=== PATIENT | female | born 1930 | race Caucasian/White ===

== ENCOUNTER → 2017-02-13 | Outpatient (CLI) | payer MEDICARE, OTHER ==
[2016-12-13 14:15] VITALS: BP 168/95
[~2017-02-13] MED LIST: ASPI81TA9 PO; CLON0.5T3 PO; METO100T5 PO; OMEP20CA5 PO; TELM80TA PO; TRAM50TA PO
[2017-02-13 10:50] LABS: COLOR,URINE YELLOW
[2017-02-13 10:51] LABS: BACTERIA,URINE 0 /HPF (0-FEW); BILIRUBIN,URINE NEG (NEG); CLARITY,URINE HAZY; GLUCOSE,URINE NEG (NEG); NITRITE,URINE NEG (NEG); RBC,URINE RARE /HPF (0-2); SQUAMOUS EPITHELIAL CELL,UR OCC /LPF; UROBILINOGEN,URINE 0.2 mg/dL (0.2 mg/dL)
== END | disposition home or self-care (01) ==
LOC: SPEC 09:48
PROVIDERS: ATTEND Family Medicine
DX: R41.0 Disorientation, unspecified (principal)
CPT/HCPCS: 81001; 87086

== ENCOUNTER → 2017-03-10 | Outpatient (CLI) | payer MEDICARE, OTHER ==
[2016-12-13 14:15] VITALS: BP 168/95
[2017-03-10 08:19] LABS: CALCIUM 9.1 mg/dL (8.5-10.1); CREATININE 1.9 mg/dL (0.6-1.0); POTASSIUM 4.1 mmol/L (3.5-5.1)
[2017-03-10 08:22] LABS: GFR 25.1
== END | disposition home or self-care (01) ==
LOC: SPEC 07:53
PROVIDERS: ATTEND Family Medicine
DX: I10 Essential (primary) hypertension (principal)
CPT/HCPCS: 36415; 80048

== ENCOUNTER → 2017-05-13 | Outpatient (CLI) | payer MEDICARE, OTHER ==
[2016-12-13 14:15] VITALS: BP 168/95
[~2017-05-13] MED LIST changes: +ASPI-612 PO; -ASPI81TA9 PO
[2017-05-13 10:53] LABS: BASO % 1 % (0-3); EOS # 0.5 x10^3/uL (0.0-0.7); EOS % 6 % (0-3); HEMATOCRIT 35.4 % (36.0-47.0); HEMOGLOBIN 11.7 g/dL (12.0-15.5); LYMPH # 1.7 x10^3/uL (1.0-4.8); LYMPH % 21 % (24-48); MEAN CORPUSCULAR HEMOGLOBIN 31 pg (25-35); MEAN CORPUSCULAR HGB CONC 33 g/dL (31-37); MEAN CORPUSCULAR VOLUME 94 fL (79-100); MONO # 0.6 x10^3/uL (0.0-1.1); MONO % 8 % (0-9); NEUT # 5.2 x10^3uL (1.8-7.7); NEUT % 64 % (31-73); PLATELET COUNT 344 x10^3/uL (140-400); RED BLOOD COUNT 3.76 x10^6/uL (3.50-5.40); WHITE BLOOD COUNT 8.2 x10^3/uL (4.0-11.0)
[2017-05-13 10:55] LABS: BASO # 0.1 x10^3/uL (0.0-0.2)
[2017-05-13 10:58] LABS: ALBUMIN 3.8 g/dL (3.4-5.0); CALCIUM 9.2 mg/dL (8.5-10.1); CREATININE 1.9 mg/dL (0.6-1.0); GFR 25.1; POTASSIUM 4.3 mmol/L (3.5-5.1); TOTAL BILIRUBIN 0.4 mg/dL (0.2-1.0); TOTAL PROTEIN 7.5 g/dL (6.4-8.2)
== END | disposition home or self-care (01) ==
LOC: SPEC 10:36
PROVIDERS: ATTEND Family Medicine
DX: E03.9 Hypothyroidism, unspecified (principal); E87.1 Hypo-osmolality and hyponatremia
CPT/HCPCS: 36415; 80053; 84443; 85027

== ENCOUNTER → 2017-06-05 | Outpatient (CLI) | payer MEDICARE, OTHER ==
[2016-12-13 14:15] VITALS: BP 168/95
[2017-06-05 12:17] LABS: CREATININE 1.7 mg/dL (0.6-1.0); GFR 28.6; POTASSIUM 3.8 mmol/L (3.5-5.1)
== END | disposition home or self-care (01) ==
LOC: SPEC 12:01
PROVIDERS: ATTEND Internal Medicine Cardiovascular Disease
DX: N18.4 Chronic kidney disease, stage 4 (severe) (principal)
CPT/HCPCS: 36415; 80048

== ENCOUNTER → 2017-07-13 | Outpatient (CLI) | payer MEDICARE, OTHER ==
[2016-12-13 14:15] VITALS: BP 168/95
[2017-07-13 08:39] LABS: CALCIUM 8.9 mg/dL (8.5-10.1); CREATININE 1.8 mg/dL (0.6-1.0); GFR 26.7; POTASSIUM 4.3 mmol/L (3.5-5.1)
== END | disposition home or self-care (01) ==
LOC: SPEC 08:03
PROVIDERS: ATTEND Family Medicine
DX: E03.9 Hypothyroidism, unspecified (principal)
CPT/HCPCS: 36415; 80048

== ENCOUNTER → 2017-09-07 | Outpatient (CLI) | payer MEDICARE, OTHER ==
[2016-12-13 14:15] VITALS: BP 168/95
[2017-09-08 04:09] LABS: HEMOGLOBIN A1C 5.1 % (4.8-5.6)
== END | disposition home or self-care (01) ==
LOC: SPEC 07:38
PROVIDERS: ATTEND Family Medicine
DX: I10 Essential (primary) hypertension (principal); E03.9 Hypothyroidism, unspecified; Z79.899 Other long term (current) drug therapy
CPT/HCPCS: 36415; 80061; 83036

== ENCOUNTER → 2017-09-12 | Outpatient (CLI) | payer MEDICARE, OTHER ==
[2016-12-13 14:15] VITALS: BP 168/95
[2017-09-12 12:06] LABS: CALCIUM 9.2 mg/dL (8.5-10.1); CREATININE 1.6 mg/dL (0.6-1.0); GFR 30.6
== END | disposition home or self-care (01) ==
LOC: SPEC 11:50
PROVIDERS: ATTEND Family Medicine
DX: I10 Essential (primary) hypertension (principal)
CPT/HCPCS: 36415; 80048

== ENCOUNTER → 2017-10-18 | Outpatient (CLI) | payer MEDICARE, OTHER ==
[2016-12-13 14:15] VITALS: BP 168/95
[2017-10-18 11:36] LABS: CREATININE 1.7 mg/dL (0.6-1.0); GFR 28.6; POTASSIUM 3.8 mmol/L (3.5-5.1)
== END | disposition home or self-care (01) ==
LOC: SPEC 11:08
PROVIDERS: ATTEND Family Medicine
DX: Z00.01 Encounter for general adult medical examination with abnormal findings (principal); I12.9 Hypertensive chronic kidney disease with stage 1 through stage 4 chronic kidney disease, or unspecified chronic kidney disease; N18.4 Chronic kidney disease, stage 4 (severe)
CPT/HCPCS: 36415; 80048

== ENCOUNTER → 2017-11-12 | Outpatient (CLI) | payer MEDICARE, OTHER ==
[2016-12-13 14:15] VITALS: BP 168/95
[2017-11-12 10:34] LABS: BASO # 0.1 x10^3/uL (0.0-0.2); BASO % 1 % (0-3); EOS # 0.4 x10^3/uL (0.0-0.7); EOS % 6 % (0-3); HEMATOCRIT 38.8 % (36.0-47.0); HEMOGLOBIN 12.9 g/dL (12.0-15.5); LYMPH # 1.9 x10^3/uL (1.0-4.8); LYMPH % 27 % (24-48); MEAN CORPUSCULAR HEMOGLOBIN 30 pg (25-35); MEAN CORPUSCULAR HGB CONC 33 g/dL (31-37); MEAN CORPUSCULAR VOLUME 92 fL (79-100); MONO # 0.6 x10^3/uL (0.0-1.1); MONO % 9 % (0-9); NEUT % 58 % (31-73); PLATELET COUNT 303 x10^3/uL (140-400); RED BLOOD COUNT 4.24 x10^6/uL (3.50-5.40); RED CELL DISTRIBUTION WIDTH 13.7 % (11.5-14.5); WHITE BLOOD COUNT 6.9 x10^3/uL (4.0-11.0)
[2017-11-12 10:41] LABS: ALBUMIN 3.6 g/dL (3.4-5.0); ALBUMIN/GLOBULIN RATIO 0.8 (1.0-1.7); CALCIUM 9.4 mg/dL (8.5-10.1); CREATININE 1.9 mg/dL (0.6-1.0); GFR 25.1; POTASSIUM 4.2 mmol/L (3.5-5.1); TOTAL BILIRUBIN 0.4 mg/dL (0.2-1.0)
== END | disposition home or self-care (01) ==
LOC: SPEC 09:56
PROVIDERS: ATTEND Family Medicine
DX: I10 Essential (primary) hypertension (principal); E78.1 Pure hyperglyceridemia
CPT/HCPCS: 36415; 80053; 84443; 85025

== ENCOUNTER → 2017-12-03 | Outpatient (CLI) | payer MEDICARE, OTHER ==
[2016-12-13 14:15] VITALS: BP 168/95
[2017-12-03 10:36] LABS: ALBUMIN 3.4 g/dL (3.4-5.0); ALBUMIN/GLOBULIN RATIO 0.8 (1.0-1.7); CREATININE 1.5 mg/dL (0.6-1.0); POTASSIUM 3.9 mmol/L (3.5-5.1); TOTAL BILIRUBIN 0.5 mg/dL (0.2-1.0); TOTAL PROTEIN 7.6 g/dL (6.4-8.2)
== END | disposition home or self-care (01) ==
LOC: SPEC 09:54
PROVIDERS: ATTEND Family Medicine
DX: I13.0 Hypertensive heart and chronic kidney disease with heart failure and stage 1 through stage 4 chronic kidney disease, or unspecified chronic kidney disease (principal); I50.9 Heart failure, unspecified; N18.4 Chronic kidney disease, stage 4 (severe); I34.1 Nonrheumatic mitral (valve) prolapse; G47.00 Insomnia, unspecified; R61 Generalized hyperhidrosis; K21.9 Gastro-esophageal reflux disease without esophagitis; E78.1 Pure hyperglyceridemia
CPT/HCPCS: 36415; 80053; 82977

== ENCOUNTER → 2018-01-13 | Outpatient (CLI) | payer MEDICARE, OTHER ==
[2016-12-13 14:15] VITALS: BP 168/95
[2018-01-13 08:17] LABS: ALBUMIN 3.4 g/dL (3.4-5.0); CALCIUM 9.3 mg/dL (8.5-10.1); CREATININE 1.6 mg/dL (0.6-1.0); GFR 30.6; POTASSIUM 4.2 mmol/L (3.5-5.1); TOTAL BILIRUBIN 0.4 mg/dL (0.2-1.0); TOTAL PROTEIN 6.9 g/dL (6.4-8.2)
== END | disposition home or self-care (01) ==
LOC: SPEC 07:46
PROVIDERS: ATTEND Family Medicine
DX: E03.9 Hypothyroidism, unspecified (principal); I10 Essential (primary) hypertension
CPT/HCPCS: 36415; 80053

== ENCOUNTER → 2018-02-10 | Outpatient (CLI) | payer MEDICARE, OTHER ==
[2016-12-13 14:15] VITALS: BP 168/95
[2018-02-10 12:39] LABS: ALBUMIN 3.7 g/dL (3.4-5.0); CALCIUM 9.1 mg/dL (8.5-10.1); CREATININE 1.8 mg/dL (0.6-1.0); GFR 26.7; TOTAL BILIRUBIN 0.3 mg/dL (0.2-1.0); TOTAL PROTEIN 7.5 g/dL (6.4-8.2)
== END | disposition home or self-care (01) ==
LOC: SPEC 12:12
PROVIDERS: ATTEND Family Medicine
DX: I13.0 Hypertensive heart and chronic kidney disease with heart failure and stage 1 through stage 4 chronic kidney disease, or unspecified chronic kidney disease (principal); I50.9 Heart failure, unspecified; N18.4 Chronic kidney disease, stage 4 (severe); E78.1 Pure hyperglyceridemia
CPT/HCPCS: 36415; 80053

== ENCOUNTER → 2018-07-15 | Outpatient (CLI) | payer MEDICARE, OTHER ==
[2016-12-13 14:15] VITALS: BP 168/95
[~2018-07-15] MED LIST changes: +CLON0.5T11 PO; -CLON0.5T3 PO
--- NOTE | 2018-07-15 16:24 | RAD ---
CT ABDOMEN PELVIS WO CONTRAST Indication: LOWER LEFT SIDE ABDOMINAL PAIN Exposure: One or more of the following individualized dose reduction techniques were utilized for this examination: 1. Automated exposure control 2. Adjustment of the mA and/or kV according to patient size 3. Use of iterative reconstruction technique. Comparison: None are available. Contrast: No intravenous contrast given. No oral contrast per request. Evaluation of solid viscera, bowel and vasculature is compromised by the noncontrast technique. Lower thorax: Heart size is enlarged. Coronary artery calcifications. Mild atelectasis or fibrosis in lung bases. Liver: Unremarkable Spleen: Unremarkable Pancreas: Unremarkable Adrenals:No evidence of mass. Kidneys: Atrophic. No apparent mass. Minimal hyperdense lesion at the lower pole, image 41, measures 3 mm Urinary tracts:No urolithiasis or hydronephrosis. Gallbladder: Minimal dependent density, likely small gallstones. Aorta: Densely calcified and tortuous. Lymph nodes: No significant enlargement GI tract: Large hiatal hernia is partially seen. No bowel obstruction. Diverticulosis without evidence of an acute colitis. Appendix is not clearly visualized. Reproductive organs: No evidence of mass. There is an implanted structure posterior to the bladder. Urinary bladder: Unremarkable. Peritoneum: No evidence of pneumoperitoneum. No free fluid. Abdominal wall: Unremarkable Spine: Severe degenerative spondylosis. Mild compression fracture of L1 likely chronic. Vertebroplasty cement at T12. Bones: No destructive process identified. IMPRESSION: 1. Large hiatal hernia. 2. Tiny hyperdensity at the lower pole of left kidney may represent a hemorrhagic cyst. Nonemergent renal ultrasound could further evaluate if indicated. 3. Colonic diverticulosis without evidence of acute colitis. 4. Small dependent density in the gallbladder, likely small gallstone. Electronically signed by: Ramiro Patel MD (07/15/2018 4:20 PM) [id number]
== END | disposition home or self-care (01) ==
LOC: CT 15:49
PROVIDERS: ATTEND Family Medicine
DX: K44.9 Diaphragmatic hernia without obstruction or gangrene (principal); K57.30 Diverticulosis of large intestine without perforation or abscess without bleeding; M47.9 Spondylosis, unspecified; M48.56XA Collapsed vertebra, not elsewhere classified, lumbar region, initial encounter for fracture; I13.0 Hypertensive heart and chronic kidney disease with heart failure and stage 1 through stage 4 chronic kidney disease, or unspecified chronic kidney disease; I50.9 Heart failure, unspecified; N18.4 Chronic kidney disease, stage 4 (severe); E03.9 Hypothyroidism, unspecified; K21.9 Gastro-esophageal reflux disease without esophagitis
CPT/HCPCS: 74176

== ENCOUNTER → 2020-05-29 | Outpatient (CLI) | payer MEDICARE, OTHER ==
[2016-12-13 14:15] VITALS: BP 168/95
[~2020-05-29] MED LIST changes: -CLON0.5T11 PO; +CLON0.5T4 PO
--- NOTE | 2020-05-29 15:43 | RAD ---
3 views of the left foot without comparison for fall. FINDINGS: Bones are diffusely osteopenic. The there is a fracture of the fifth metatarsal in its distal diaphysis, with mild displacement. No other fracture or acute osseous abnormality seen. Erosive changes are seen about the first metatarsophalangeal joint evocative of gout. IMPRESSION: 1. Fracture the fifth metatarsal with mild displacement. 2. Diffuse osteopenia. 3. Monarticular arthritis of the first metatarsal phalangeal joint evocative of gout. Electronically signed by: Js Mclaughlin MD (05/29/2020 3:40 PM) [id number]
== END | disposition home or self-care (01) ==
LOC: DXRAD 10:38
PROVIDERS: ATTEND Family Medicine
DX: S92.352A Displaced fracture of fifth metatarsal bone, left foot, initial encounter for closed fracture (principal); M85.872 Other specified disorders of bone density and structure, left ankle and foot; M19.072 Primary osteoarthritis, left ankle and foot; M10.9 Gout, unspecified; X58.XXXA Exposure to other specified factors, initial encounter; Y93.89 Activity, other specified; Y92.89 Other specified places as the place of occurrence of the external cause; Y99.8 Other external cause status
CPT/HCPCS: 73630

== ENCOUNTER → 2020-06-05 | Outpatient (CLI) | payer MEDICARE, OTHER ==
[2016-12-13 14:15] VITALS: BP 168/95
[~2020-06-05] MED LIST changes: -ASPI-612 PO; +ASPI-889 PO
--- NOTE | 2020-06-05 10:24 | RAD ---
Examination: FOOT LEFT 3V History: Reason: LEFT FOOT PAIN / Spl. Instructions: / History: Comparison/Correlation: 05/29/2020 left foot X ray exam Findings: 3 views of the left foot were obtained. Marked osteopenia is present. Oblique displaced fracture of the fifth metatarsal shaft distally is present. First metatarsophalangeal joint degenerative remodeling and narrowing is present along with spurring. Mild soft tissue swelling about the medial aspect of the first metatarsophalangeal joint suggested. No acute fracture or bone destruction. Small calcaneal spur. Arteriovascular calcifications level. Impression: No significant change in the first metatarsal displaced fracture. No appreciable callus formation in the interval. First metatarsophalangeal joint degenerative change again seen. Electronically signed by: Kilo Kruger MD (06/05/2020 10:21 AM) [id number]
== END ==
LOC: DXRAD 09:03
PROVIDERS: ATTEND Family Medicine
DX: S92.352A Displaced fracture of fifth metatarsal bone, left foot, initial encounter for closed fracture (principal); M77.32 Calcaneal spur, left foot; M85.872 Other specified disorders of bone density and structure, left ankle and foot; M79.89 Other specified soft tissue disorders; X58.XXXA Exposure to other specified factors, initial encounter; Y93.89 Activity, other specified; Y92.89 Other specified places as the place of occurrence of the external cause; Y99.8 Other external cause status
CPT/HCPCS: 73630

== ENCOUNTER → 2020-06-19 | Outpatient (CLI) | payer MEDICARE, OTHER ==
[2016-12-13 14:15] VITALS: BP 168/95
--- NOTE | 2020-06-19 10:39 | RAD ---
FOOT LEFT 3V 06/19/2020 12:00 AM INDICATION: Left foot pain COMPARISON: None available. TECHNIQUE: 3 views of the left foot are provided. FINDINGS/ IMPRESSION: 1. Acute fracture, obliquely oriented through the midshaft of the fifth metatarsal with one shaft width displacement. No definite intra-articular extension. 2. Regional soft tissue swelling is present. 3. Osteopenia. 4. Vascular calcifications. Electronically signed by: Nathaly Loaiza MD (06/19/2020 10:37 AM) [id number]
== END | disposition home or self-care (01) ==
LOC: DXRAD 08:55
PROVIDERS: ATTEND Family Medicine
DX: S92.352A Displaced fracture of fifth metatarsal bone, left foot, initial encounter for closed fracture (principal); M79.89 Other specified soft tissue disorders; M85.872 Other specified disorders of bone density and structure, left ankle and foot; M25.872 Other specified joint disorders, left ankle and foot; X58.XXXA Exposure to other specified factors, initial encounter; Y93.89 Activity, other specified; Y92.89 Other specified places as the place of occurrence of the external cause; Y99.8 Other external cause status
CPT/HCPCS: 73630

== ENCOUNTER → 2020-07-04 | Outpatient (CLI) | payer MEDICARE, OTHER ==
--- NOTE | 2020-07-01 14:33 | NUR ---
NURSING NOTE BLADDER SCAN PT WHEELED TO ROOM 105 FOR OUTPATIENT BLADDER SCAN. PT STATES SHE JUST VOID BEFORE ARRIVAL. PT HAS 58ML OF URINE IN BLADDER PER BLADDER SCAN. PT UNABLE TO VOID FOR POST URINATION SCAN D/T JUST VOIDING BEFORE ARRIVAL. DORI IBANEZ.
[2020-07-01 14:42] VITALS: BP 165/84
--- NOTE | 2020-07-04 13:44 | NUR ---
NURSING NOTE BLADDER SCAN PT WHEELED TO ROOM 128 FOR OUTPATIENT BLADDER SCAN. PT HAS APPROX 421ML OF URINE IN BLADDER PER BLADDER SCAN. PT VOID APPROX 380ML. PT HAS APPROX 20ML OF URINE IN BLADDER PER BLADDER SCAN. NO COMPLICATIONS. DORI IBANEZ.
[2020-07-04 13:47] VITALS: BP 155/80
== END | disposition home or self-care (01) ==
LOC: OPINF 07-01 14:09
PROVIDERS: ATTEND Family Medicine
DX: R35.0 Frequency of micturition (principal)
CPT/HCPCS: 51798

== ENCOUNTER → 2020-07-30 | Outpatient (CLI) | payer MEDICARE, OTHER ==
[2020-07-04 13:47] VITALS: BP 155/80
--- NOTE | 2020-07-30 10:55 | RAD ---
Abdominal ultrasound without comparison for abnormal LFTs. TECHNIQUE AND FINDINGS: Real-time grayscale and color Doppler evaluation of the abdominal organs is performed. The majority of the pancreas is obscured by overlying bowel gas. The IVC is patent. Mid and distal aorta is nonaneurysmal. Proximal aorta is not well seen.The liver measures 14.5 cm, and visualized portions are grossly unremarkable. Much of the liver is poorly visualized due to attenuation from body habitus. No discrete masses are identified. No intra or extrahepatic biliary ductal dilatation. Common bile duct measures 2 mm in thickness. The right kidney is completely obscured, likely due to attenuation from habitus. The left kidney measures 9.0 x 4.0 x 4.7 cm and is free of any hydronephrosis or focal parenchymal abnormalities. There is increased echogenicity of the cortex and decreased cortical medullary differentiation which may reflect chronic medical renal disease. The spleen is not well depicted once again likely due to attenuation of the ultrasound beam by habitus and overlying bowel gas. The gallbladder is partially fluid distended and grossly unremarkable with no definite shadowing stones or sludge, though the entirety of the fundus is not well seen. No gallbladder wall thickening or pericholecystic fluid. No sonographic Bundy sign. IMPRESSION: 1. Limited exam for midline structures and solid organ detail, with no definite abnormalities of the liver, gallbladder, or biliary tree. 2. Nonvisualization of the right kidney and abnormal appearance of the left kidney suggestive chronic medical renal disease. Electronically signed by: Js Mclaughlin MD (07/30/2020 10:52 AM) [id number]
== END | disposition home or self-care (01) ==
LOC: US 09:47
PROVIDERS: ATTEND Family Medicine
DX: R94.5 Abnormal results of liver function studies (principal)
CPT/HCPCS: 76700

== ENCOUNTER 2021-01-16 11:44 | Observation (INO) | payer MEDICARE, OTHER ==
[~2021-01-16] VITALS: Ht 162.6 cm; Wt 71.5 kg
--- NOTE | 2021-01-16 12:03 | PHYS DOC ---
Past History Past Medical History: Anxiety, Cancer, GERD, Hypertension, Hypothyroid, Other Additional Past Medical Histor: hypertension critical aortic stenosis chronic renal insufficiency,pesari Past Surgical History: No Surgical History, Appendectomy Smoking: Non-smoker Alcohol Use: None Drug Use: None General Adult HPI: HPI: Patient is a 89-year-old female coming in after a fall about 5:00 this morning (about 7 hours prior to arrival). Patient that she slipped in the shower and is complaining of right rib pain. Patient denies any loss of consciousness or head injury. Denies any neck pain. States she otherwise been well and is not on blood thinners. Patient is baseline on nasal cannula at 2 L. Denies anticoagulant us. Review of Systems: Review of Systems: All other systems within normal limits except for as noted in the HPI Allergies: Allergies: Allergies Coded Allergies Type Severity Reaction Last Updated Verified Iodinated Contrast Media - IV Dye Allergy Intermediate Itching 09/14/15 Yes Physical Exam: PE: Constitutional: Well developed, well nourished, no acute distress, non-toxic appearance. [] HENT: Normocephalic, atraumatic, bilateral external ears normal, nose normal. [] Eyes: PERRLA, conjunctiva normal, no discharge. [] Neck: No rigidity, supple, no stridor, no C-spine tenderness. [] Cardiovascular: Regular rate and rhythm, brisk cap refill [] Lungs & Thorax: Non labored symmetric respirations, no tachypnea or respiratory distress [] Abdomen: Soft, nondistended, no tenderness, no pelvic tenderness.. Skin: Warm, dry, no erythema, no rash. Ecchymosis to right thoracic back [] Back: Unremarkable, no step-offs or deformities, no point spinal tenderness. Extremities: No deformities, range of motion grossly intact, no lower extremity edema [] Neurologic: Alert and oriented X 3, no focal deficits noted. [] Psychologic: Affect normal, judgement normal, mood normal. [] EKG: EKG: [] Radiology/Procedures: Radiology/Procedures: CT HEAD AND CERVICAL SPINE WITHOUT CONTRAST History: Reason: fall / Spl. Instructions: / History: Comparison: CT head without contrast, December 29, 2016. Procedure: Axial images are obtained of the head from the skull base through the vertex without IV contrast. Noncontrast helical CT of the cervical spine was performed. Axial, sagittal, and coronal reconstructions were obtained. 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 The ventricles and sulci are prominent, consistent with age-related cerebral atrophy. There is periventricular white matter hypoattenuation. This is a nonspecific finding but is commonly due to chronic small vessel ischemic disease in a patient of this age. No mass-effect, midline shift, hemorrhage or obvious acute infarction is identified. Basilar cisterns are patent. Bone windows demonstrate no significant calvarial abnormality. There is mucosal thickening of the bilateral ethmoid sinuses. Mastoid air cells are well aerated. There is no evidence of acute fracture or acute malalignment of the cervical spine. The facet joints are severely hypertrophic. There is minimal grade 1 anterolisthesis of C4 on C5. The alignment is otherwise maintained. There is mild disc space narrowing at C5/C6. There is mild old compression deformity at the superior endplate of C7. There is severe bilateral carotid artery calcifications. The visualized lung apices are clear. IMPRESSION: 1. No acute intracranial abnormality. 2. No acute fracture of the cervical spine. CT CHEST_ABDOMEN_ AND PELVIS WITHOUT CONTRAST Clinical Indication: Reason: fall, right side back/shoulder pain Comparison: CT abdomen and pelvis without contrast July 15, 2018. Technique: Helical CT imaging of the chest, abdomen and pelvis is performed without IV or oral contrast. Findings: Evaluation of vascular structures, solid organs and bowel is limited without oral and IV contrast, decreasing sensitivity for detection of pathology. There is no acute mediastinal hematoma. Atherosclerotic thoracic aorta. Patient is post DELICIA. Moderate mitral annular calcification. Coronary artery disease. Moderate cardiomegaly. No pericardial effusion. Moderate-sized hiatal hernia. Small left and trace right pleural effusions. No pneumothorax. There is moderate atelectasis in the bilateral lower lobes. No acute traumatic solid organ injuries identified in the upper abdomen. There is left adrenal gland hyperplasia. Severe atherosclerotic calcification of the abdominal aorta and its branches. There is no aneurysm. No bowel obstruction. Severe distal colon diverticulosis. There is no intraperitoneal free air or free fluid. No injury of the urinary bladder is seen. Vaginal pessary is noted. Degenerative spondylosis of the thoracolumbar spine. There is old compression fracture treated with vertebroplasty of T12. There is old compression fracture at the superior endplate of L1. There is grade 1 anterolisthesis of L3 on L4 and L4 on L5. There is minimal left convexity lumbar scoliosis. There is probable old fracture of the proximal right humerus. There are acute traumatic fractures of the right posterior ninth and 10th ribs. The fractures are minimally displaced. IMPRESSION: 1. There are acute traumatic fractures of the right posterior ninth and 10th ribs. 2. Small left and trace right pleural effusions. 3. Moderate-sized hiatal hernia. 4. Severe distal colon diverticulosis. [] Heart Score: Risk Factors: Risk Factors: DM, Current or recent (<one month) smoker, HTN, HLP, family history of CAD, obesity. Risk Scores: Score 0 - 3: 2.5% MACE over next 6 weeks - Discharge Home Score 4 - 6: 20.3% MACE over next 6 weeks - Admit for Clinical Observation Score 7 - 10: 72.7% MACE over next 6 weeks - Early Invasive Strategies Course & Med Decision Making: Course & Med Decision Making Admit for oxygen monitoring and pain management [] Dragon Disclaimer: Dragon Disclaimer: This electronic medical record was generated, in whole or in part, using a voice recognition dictation system. Departure Departure: Impression: Primary Impression: Rib fracture Additional Impression: Fall Disposition: ADMITTED INPT THIS HOSP Admitting Physician: Haim Ramos Condition: STABLE Referrals: TUSHAR MARIA MD (PCP) PRASAD FRANCIS MD Jan 16, 2021 12:03
[2021-01-16] MEDS ORDERED: LIDOCAINE (700MG/PATCH) PATCH. TD ONE (12:11)
[2021-01-16 12:50] LABS: BASO # 0.1 x10^3/uL (0.0-0.2); BASO % 1 % (0-3); EOS # 0.2 x10^3/uL (0.0-0.7); EOS % 2 % (0-3); HEMOGLOBIN 11.9 g/dL (12.0-15.5); LYMPH # 0.9 x10^3/uL (1.0-4.8); LYMPH % 10 % (24-48); MEAN CORPUSCULAR HEMOGLOBIN 30 pg (25-35); MEAN CORPUSCULAR HGB CONC 32 g/dL (31-37); MEAN CORPUSCULAR VOLUME 94 fL (79-100); MONO # 0.6 x10^3/uL (0.0-1.1); MONO % 7 % (0-9); NEUT # 7.5 x10^3uL (1.8-7.7); NEUT % 81 % (31-73); PLATELET COUNT 264 x10^3/uL (140-400); RED BLOOD COUNT 3.93 x10^6/uL (3.50-5.40); WHITE BLOOD COUNT 9.3 x10^3/uL (4.0-11.0)
[2021-01-16 13:00] LABS: CALCIUM 9.1 mg/dL (8.5-10.1); CREATININE 1.8 mg/dL (0.6-1.0); GFR 26.6; POTASSIUM 4.5 mmol/L (3.5-5.1)
[2021-01-16 13:12] LABS: ALBUMIN 3.7 g/dL (3.4-5.0); ALBUMIN/GLOBULIN RATIO 0.8 (1.0-1.7); TOTAL BILIRUBIN 0.6 mg/dL (0.2-1.0); TOTAL PROTEIN 8.1 g/dL (6.4-8.2)
--- NOTE | 2021-01-16 13:18 | RAD ---
PQRS Compliance Statement: One or more of the following individualized dose reduction techniques were utilized for this examinat ion: 1. Automated exposure control 2. Adjustment of the mA and/or kV according to patient size 3. Use of iterative reconstruction technique CT HEAD AND CERVICAL SPINE WITHOUT CONTRAST History: Reason: fall / Spl. Instructions: / History: Comparison: CT head without contrast, December 29, 2016. Procedure: Axial images are obtained of the head from the skull base through the vertex without IV co ntrast. Noncontrast helical CT of the cervical spine was performed. Axial, sagittal, and coronal rec onstructions were obtained. 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 The ventricles and sulci are prominent, consistent with age- related cerebral atrophy. There is periventricular white matter hypoattenuation. This is a nonspeci fic finding but is commonly due to chronic small vessel ischemic disease in a patient of this age. No mass-effect, midline shift, hemorrhage or obvious acute infarction is identified. Basilar cistern s are patent. Bone windows demonstrate no significant calvarial abnormality. There is mucosal thickening of the bilateral ethmoid sinuses. Mastoid air cells are well aerated. There is no evidence of acute fracture or acute malalignment of the cervical spine. The facet joints are severely hypertrophic. There is minimal grade 1 anterolisthesis of C4 on C5. The alignment is otherwise maintained. There is mild disc space narrowing at C5/C6. There is mild old co mpression deformity at the superior endplate of C7. There is severe bilateral carotid artery calcifications. The visualized lung apices are clear. IMPRESSION: 1. No acute intracranial abnormality. 2. No acute fracture of the cervical spine. Electronically signed by: Sacha Rocha MD (01/16/2021 1:16 PM) [facility]
--- NOTE | 2021-01-16 13:50 | RAD ---
PQRS Compliance Statement: One or more of the following individualized dose reduction techniques were utilized for this examinat ion: 1. Automated exposure control 2. Adjustment of the mA and/or kV according to patient size 3. Use of iterative reconstruction technique CT CHEST_ABDOMEN_ AND PELVIS WITHOUT CONTRAST Clinical Indication: Reason: fall, right side back/shoulder pain Comparison: CT abdomen and pelvis without contrast July 15, 2018. Technique: Helical CT imaging of the chest, abdomen and pelvis is performed without IV or oral contra st. Findings: Evaluation of vascular structures, solid organs and bowel is limited without oral and IV contrast, de creasing sensitivity for detection of pathology. There is no acute mediastinal hematoma. Atherosclerotic thoracic aorta. Patient is post DELICIA. Moderat e mitral annular calcification. Coronary artery disease. Moderate cardiomegaly. No pericardial effusi on. Moderate-sized hiatal hernia. Small left and trace right pleural effusions. No pneumothorax. There is moderate atelectasis in the b ilateral lower lobes. No acute traumatic solid organ injuries identified in the upper abdomen. There is left adrenal gland hyperplasia. Severe atherosclerotic calcification of the abdominal aorta and its branches. There is n o aneurysm. No bowel obstruction. Severe distal colon diverticulosis. There is no intraperitoneal free air or lena e fluid. No injury of the urinary bladder is seen. Vaginal pessary is noted. Degenerative spondylosis of the thoracolumbar spine. There is old compression fracture treated with v ertebroplasty of T12. There is old compression fracture at the superior endplate of L1. There is grad e 1 anterolisthesis of L3 on L4 and L4 on L5. There is minimal left convexity lumbar scoliosis. There is probable old fracture of the proximal right humerus. There are acute traumatic fractures of the r ight posterior ninth and 10th ribs. The fractures are minimally displaced. IMPRESSION: 1. There are acute traumatic fractures of the right posterior ninth and 10th ribs. 2. Small left and trace right pleural effusions. 3. Moderate-sized hiatal hernia. 4. Severe distal colon diverticulosis. Electronically signed by: Sacha Rocha MD (01/16/2021 1:48 PM) [facility]
[2021-01-16 14:13] LABS: CLARITY,URINE HAZY; COLOR,URINE STRAW
[2021-01-16 14:14] LABS: BACTERIA,URINE MOD /HPF (0-FEW); BILIRUBIN,URINE NEG (NEG); GLUCOSE,URINE NEG (NEG); NITRITE,URINE NEG (NEG); RBC,URINE OCC /HPF (0-2); UROBILINOGEN,URINE 0.2 mg/dL (0.2 mg/dL)
[2021-01-16 14:15] LABS: SQUAMOUS EPITHELIAL CELL,UR MANY /LPF
[2021-01-16] MEDS ORDERED: ONDANSETRON PF 4 MG/2 ML VIAL. IVP PRN (14:45)
[2021-01-16] MEDS ORDERED: ACETAMINOPHEN 325 MG TABLET PO PRN ×2 (14:45→20:45)
[2021-01-16] MEDS ORDERED: IV NORMAL SALINE 50ML 50 ML ONE (15:00)
[2021-01-16] MEDS ORDERED: cefTRIAXone SODIUM 1 GM VIAL ONE (15:01)
[2021-01-16 17:07] VITALS: BP 159/69
[2021-01-16] MEDS ORDERED: ASPI81TA59 PO (17:21)
[2021-01-16] MEDS ORDERED: LEVO88TA4 PO (17:21)
[2021-01-16] MEDS ORDERED: MELA3TAB43 PO (17:21)
[2021-01-16] MEDS ORDERED: POTA10TA5 PO (17:21)
[2021-01-16] MEDS ORDERED: CLON0.5T4 PO (17:21)
[2021-01-16] MEDS ORDERED: DOCU-109 PO (17:21)
[2021-01-16] MEDS ORDERED: AMLO-187 PO (17:21)
[2021-01-16] MEDS ORDERED: TORS20TA2 PO (17:21)
[2021-01-16] MEDS ORDERED: ACET325T9 PO ×2 (17:21)
[2021-01-16] MEDS ORDERED: SERT25TA PO (17:26)
[2021-01-16] MEDS ORDERED: ATOR40TA59 PO (17:26)
[2021-01-16] MEDS ORDERED: HYDR-2868 PO (17:26)
[2021-01-16] MEDS ORDERED: PANT20TA58 PO (17:26)
[2021-01-16] MEDS ORDERED: LABE100T5 PO (17:26)
--- NOTE | 2021-01-16 18:16 | NUR ---
NSG NOTE; ADMISSION ADMIT TO ROOM 113 AT 1650 FROM THE ED VIA CART ACCOMP BY EMS PERSONNEL PT FELL IN SHOWER THIS AM AND FX POSTERIOR RIBS 9 & 10. ADMITTED FOR PAIN CONTROL
[2021-01-16] MEDS ORDERED: LACT1CAP6 PO (18:25)
--- NOTE | 2021-01-16 19:50 | NUR ---
Received phone call from Ramona Sims from [place] requesting information on Patient. Ramona did not have HIPPA code. Ramona stated she was the niece of the Patient. Informed Ramona of need to contact [facility] and talk with personnel director there. Offered to transfer phone to room. Ramona stated "She won't be able to hear me, I'll contact them to see if I can get information/code." Addendum: 01/17/21 at 0612 by MARIA ED JESUS HUNT RN Ramona stated she would call back later this evening after she talked with [facility] personnel director.
[2021-01-16 19:55] VITALS: BP 144/71
--- NOTE | 2021-01-16 20:04 | NUR ---
See assessment. Pain medication given per order. Patient alert and oriented x 4. Knew where she was, why she is here, Knew her name, date of . Today's date, current President. Patient asked if she knew a Ramona Sims? Patient states "That's my niece." Asked her where she lived and Patient stated "In [place]." Informed Patient that Ramona was asking questions about her condition/status and if it was okay to tell her and give her the HIPPA code (privacy code). Patient stated "Yes it is okay to give her information/code."
[2021-01-16] MEDS ORDERED: SERTRALINE 25 MG TABLET. PO SCH (21:00)
[2021-01-16] MEDS ORDERED: ATORVASTATIN CALCIUM 20 MG TABLET PO SCH (21:00)
[2021-01-16] MEDS ORDERED: MELATONIN 3 MG TABLET PO SCH (21:00)
[2021-01-16] MEDS ORDERED: PATCH REMOVAL. MC SCH (21:00)
[2021-01-16] MEDS ORDERED: ACETAMINOPHEN 325 MG TABLET PO SCH (21:00)
[2021-01-16] MEDS ORDERED: DOCUSATE SODIUM 100 MG CAPSULE PO SCH (21:00)
[2021-01-16] MEDS: clonazePAM 0.5 MG TABLET PO SCH (21:20)
[2021-01-16] MEDS: hydrALAZINE 25 MG TABLET PO SCH (21:21)
[2021-01-16] MEDS: LABETALOL HCL 100 MG TABLET PO SCH (21:22)
[2021-01-16 21:31] VITALS: BP 144/65
[2021-01-17 05:45] VITALS: BP 108/65
[2021-01-17] MEDS ORDERED: LEVOTHYROXINE 88 MCG TABLET PO SCH (06:00)
--- NOTE | 2021-01-17 06:12 | NUR ---
Ramona hasn't called back this shift. Will pass on in report to contact Ramona at [phone] to give Hippa code per approval of Patient.
[2021-01-17 06:46] LABS: BASO # 0.1 x10^3/uL (0.0-0.2); BASO % 1 % (0-3); EOS # 0.3 x10^3/uL (0.0-0.7); EOS % 4 % (0-3); HEMATOCRIT 33.6 % (36.0-47.0); HEMOGLOBIN 10.8 g/dL (12.0-15.5); LYMPH # 0.9 x10^3/uL (1.0-4.8); LYMPH % 14 % (24-48); MEAN CORPUSCULAR HEMOGLOBIN 30 pg (25-35); MEAN CORPUSCULAR HGB CONC 32 g/dL (31-37); MEAN CORPUSCULAR VOLUME 94 fL (79-100); MONO # 0.6 x10^3/uL (0.0-1.1); MONO % 8 % (0-9); NEUT # 4.9 x10^3uL (1.8-7.7); NEUT % 73 % (31-73); PLATELET COUNT 225 x10^3/uL (140-400); RED BLOOD COUNT 3.58 x10^6/uL (3.50-5.40); RED CELL DISTRIBUTION WIDTH 15.6 % (11.5-14.5); WHITE BLOOD COUNT 6.7 x10^3/uL (4.0-11.0)
[2021-01-17 06:59] LABS: CALCIUM 8.9 mg/dL (8.5-10.1); CREATININE 1.7 mg/dL (0.6-1.0); GFR 28.4
[2021-01-17] MEDS: clonazePAM 0.5 MG TABLET PO SCH (07:19)
[2021-01-17] MEDS ORDERED: PANTOPRAZOLE 40 MG TABLET. PO SCH (07:30)
[2021-01-17] MEDS ORDERED: TORSEMIDE 20 MG TABLET. PO SCH (09:00)
[2021-01-17] MEDS: LABETALOL HCL 100 MG TABLET PO SCH (09:00)
[2021-01-17] MEDS ORDERED: POTASSIUM CHLORIDE 10 MEQ TABLET.ER. PO SCH (09:00)
[2021-01-17] MEDS ORDERED: amLODIPine BESYLATE 10 MG TABLET PO SCH (09:00)
[2021-01-17] MEDS ORDERED: ASPIRIN CHEWABLE 81 MG TABLET. PO SCH (09:00)
[2021-01-17] MEDS: hydrALAZINE 25 MG TABLET PO SCH (09:00)
[2021-01-17] MEDS ORDERED: LACTOBACILLUS RHAMNOSUS GG 1 CAPSULE. PO SCH (09:00)
--- NOTE | 2021-01-17 09:35 | HP ---
ADMIT DATE: 01/16/2021 ATTENDING PHYSICIAN: Dr. Schmitt. CHIEF COMPLAINT: Chest wall pain. 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 No loss of consciousness. She sustained an injury to the right lateral rib. X-rays and CT scan demonstrated no hemothorax; however, she did have acute fractures of the 9th and 10th posterior right rib. She is not on any blood thinners. Baseline, she is on supplemental oxygen 2 liters. She was splinting a bit and had marginal saturations. She is admitted then for further treatment and evaluation, pain control. PAST MEDICAL HISTORY: Significant for gastroesophageal reflux disease, critical aortic stenosis, TAVR procedure, appendectomy. She is also hypothyroid and has hypertension. CURRENT MEDICINES: Reviewed. ALLERGIES: SHE HAS ALLERGIES TO IODINE CONTRAST. CURRENT MEDICATIONS: Include scheduled Tylenol, amlodipine, aspirin, Lipitor, clonazepam, docusate, hydralazine, labetalol, lactobacillus, Synthroid, melatonin, Protonix, potassium, Zoloft, and torsemide. SOCIAL HISTORY: She is a nonsmoker, nondrinker. FAMILY HISTORY: Noncontributory. REVIEW OF SYSTEMS: Significant for the fall. She did not lose consciousness. No COVID exposure. She has some chronic oxygen at night. All other systems reviewed and turned to be negative. PHYSICAL EXAMINATION: GENERAL: When I saw her, this is a pleasant, slightly confused elderly female. INITIAL VITAL SIGNS: Showed a blood pressure 108/64, pulse 58 and regular. She was afebrile, oxygen saturation 93% on 2 liters nasal cannula. HEENT: Head is without trauma. Pupils are reactive. Sclerae nonicteric. Oropharynx clear. NECK: Supple, no bruits. LUNGS: Clear with shallow respirations. CARDIOVASCULAR: Showed regular heart tones. There is a grade 3/6 systolic ejection murmur, extending into and obscuring the second heart sound. Peripheral pulses are palpable and full. ABDOMEN: Soft. EXTREMITIES: Showed trace edema. NEUROLOGIC: Pleasantly confused, otherwise intact. Speech is fluent. LABORATORY STUDIES: Hemoglobin was 11.9 g/dL with a white count of 9300. Chemistry panel unremarkable. Creatinine was 1.8 mg percent, BUN 43. Electrolytes within normal range. Cardiac enzymes negative. BNP slightly elevated at 1900. ASSESSMENT: 1. An 89-year-old female with fall and acute right posterior 9th and 10th rib fractures. 2. Critical aortic stenosis. 3. Essential hypertension. 4. Mild dementia. 5. Generalized debilitation. 6. Chronic renal disease, stage 3. 7. Hypothyroidism. PLAN: 1. Observation status. 2. Pain control. 3. Diet as tolerated. 4. Supplemental oxygen. VALERY SCHMITT MD DR: PING/vira JOB#: [id number] / [id number] TUSHAR Medina MD
--- NOTE | 2021-01-17 09:43 | DS ---
DATE OF DISCHARGE: 01/17/2021 ATTENDING PHYSICIAN: Dr. Schmitt. FINAL DISCHARGE DIAGNOSES: 1. Fall at home sustaining an acute right posterior 9th and 10th rib fractures, nondisplaced. 2. Critical aortic stenosis. 3. Essential hypertension. 4. Chronic obstructive pulmonary disease. 5. Hypothyroidism. 6. Generalized debilitation. HISTORY AND PHYSICAL: The patient is a pleasant 89-year-old female who lives at the [facility]. She fell at the bathroom, sustaining injury to the right ribcage. CT scan demonstrated acute rib fractures of the right 9th and 10th posterior ribs. PHYSICAL EXAMINATION: Please see the dictated note. PERTINENT LABORATORY AND X-RAY STUDIES: On the database. Creatinine is baseline at 1.8 mg percent, potassium 4.5 mEq. Hemoglobin 11.9 g/dL with a white count of 9300. COURSE IN THE HOSPITAL: The patient was admitted. Pain management, she did fairly well. Oxygen saturations were monitored. She had 95% on room air saturation. By the second hospital day, she was ready for discharge to ____ [facility]. I talked with the nurse regarding her situation. She will have no changes on her meds including the following: They should continue her Lipitor, hydralazine, labetalol, amlodipine, baby aspirin 1 daily, p.r.n. clonazepam, Zoloft, potassium, Demadex, lactobacillus, docusate, Protonix, Synthroid, and melatonin dose is unchanged. In addition, I wrote a script for Percocet 5/325 one p.o. q. 6 hours p.r.n. pain. She remains a DNR per advanced directives. She was discharged from our hospital in stable condition with explicit instructions and followup care. VALERY SCHMITT MD DR: PING/vira JOB#: [id number] / [id number] TUSHAR Medina MD
[2021-01-17 10:39] VITALS: BP 101/62
--- NOTE | 2021-01-17 11:15 | NUR ---
patient is discharged home with self care. pt is stable at time of discharge. pt is given discharage and follow up instructions. pt is escorted off of unit accompanied by staff.
== END 2021-01-17 11:15 | disposition home or self-care (01) ==
LOC: ER 11:44 → 1 SOUTH 14:43
PROVIDERS: ADMIT Hospitalist; ATTEND Hospitalist
DX: S22.41XA Multiple fractures of ribs, right side, initial encounter for closed fracture (principal); J44.9 Chronic obstructive pulmonary disease, unspecified; R07.89 Other chest pain; I35.0 Nonrheumatic aortic (valve) stenosis; F03.90 Unspecified dementia, unspecified severity, without behavioral disturbance, psychotic disturbance, mood disturbance, and anxiety; R53.81 Other malaise; I12.9 Hypertensive chronic kidney disease with stage 1 through stage 4 chronic kidney disease, or unspecified chronic kidney disease; N18.30 Chronic kidney disease, stage 3 unspecified; E11.22 Type 2 diabetes mellitus with diabetic chronic kidney disease; E03.9 Hypothyroidism, unspecified; K21.9 Gastro-esophageal reflux disease without esophagitis; K44.9 Diaphragmatic hernia without obstruction or gangrene; E78.5 Hyperlipidemia, unspecified; K57.30 Diverticulosis of large intestine without perforation or abscess without bleeding; Z90.49 Acquired absence of other specified parts of digestive tract; Z87.891 Personal history of nicotine dependence; W18.2XXA Fall in (into) shower or empty bathtub, initial encounter; Y93.E1 Activity, personal bathing and showering; Y92.89 Other specified places as the place of occurrence of the external cause; Y99.8 Other external cause status
CPT/HCPCS: 36415; 70450; 71250; 72125; 74176; 80048; 80053; 81001; 83880; 84484; 85025; 85610; 96365; 96375; 96376; 97162; 97165; 97530; 97535; 99285; G0378; J0696; J3010; G0379

== ENCOUNTER 2021-07-17 17:30 | Inpatient (IN) | payer MEDICARE, OTHER ==
[~2021-07-17] VITALS: Ht 162.6 cm; Wt 71.0 kg
[~2021-07-17 17:30] MED LIST changes: +ACET325T9 PO; +AMLO-187 PO; +ASPI81TA59 PO; +ATOR40TA59 PO; +DOCU-109 PO; +HYDR-2868 PO; +LABE100T5 PO; +LACT1CAP6 PO; +LEVO88TA4 PO; +MELA3TAB43 PO; +PANT20TA58 PO; +POTA10TA5 PO; +SERT25TA PO; +TORS20TA2 PO
--- NOTE | 2021-07-17 18:21 | PHYS DOC ---
Past History Past Medical History: Anxiety, GERD, Heart Disease, Hypertension Additional Past Medical Histor: hypertension critical aortic stenosis chronic renal insufficiency,pesari Past Surgical History: Appendectomy Smoking: Non-smoker Alcohol Use: None Drug Use: None General Adult EDM: Chief Complaint: abnormal labs, back pain HPI: HPI: 89-year-old female currently [facility] a [facility] presents to the em ergency department complaining of bilateral back pain for several weeks intermittent, mild on with abnormal labs were drawn today. Her caregiver reports that outpatient labs were drawn and she received a call that the BUN and creatinine were abnormal. Patient normally runs within normal limits, but her creatinine today was 2.3 and her BUN was 104. Patient denies any further comp laints. The patient denies nausea, vomiting, fever, chills, chest pain, shortness of breath, urinary symptoms, cough, recent trauma, or any other complaints. Review of Systems: Review of Systems: ROS is otherwise negative except what was mentioned in the HPI Family History: Family History: Noncontributory Allergies: Allergies: Allergies Coded Allergies Type Severity Reaction Last Updated Verified Iodinated Contrast Media Allergy Intermediate Itching 09/14/15 Yes Physical Exam: PE: Constitutional: No acute distress, non-toxic appearance. HENT: Atraumatic, bilateral external ears normal, nose normal. Eyes: PERRLA, EOMI, conjunctiva normal, no discharge. Neck: Normal range of motion, supple, no stridor. Cardiovascular: Heart rate regular rhythm. 2+ radial pulses Lungs & Thorax: No respiratory distress, symmetrical expansion. Abdomen: Soft, no tenderness. No CVA tenderness to palpation Skin: Warm, dry. Extremities: No tenderness, no cyanosis, ROM intact, no edema. Neurologic: Alert and oriented X 3, normal motor function, normal sensory function, no focal deficits noted. Non ataxic gait. GCS 15. Psychologic: Affect normal, judgment normal, mood normal. Current Patient Data: Labs: Laboratory Tests Test 07/17/21 18:42 07/17/21 19:45 07/17/21 22:00 White Blood Count 8.7 x10^3/uL (4.0-11.0) Red Blood Count 4.11 x10^6/uL (3.50-5.40) Hemoglobin 12.6 g/dL (12.0-15.5) Hematocrit 38.6 % (36.0-47.0) Mean Corpuscular Volume 94 fL (79-100) Mean Corpuscular Hemoglobin 31 pg (25-35) Mean Corpuscular Hemoglobin Concent 33 g/dL (31-37) Red Cell Distribution Width 13.8 % (11.5-14.5) Platelet Count 251 x10^3/uL (140-400) Neutrophils (%) (Auto) 71 % (31-73) Lymphocytes (%) (Auto) 18 % (24-48) L Monocytes (%) (Auto) 8 % (0-9) Eosinophils (%) (Auto) 2 % (0-3) Basophils (%) (Auto) 1 % (0-3) Neutrophils # (Auto) 6.2 x10^3uL (1.8-7.7) Lymphocytes # (Auto) 1.6 x10^3/uL (1.0-4.8) Monocytes # (Auto) 0.7 x10^3/uL (0.0-1.1) Eosinophils # (Auto) 0.2 x10^3/uL (0.0-0.7) Basophils # (Auto) 0.1 x10^3/uL (0.0-0.2) Sodium Level 141 mmol/L (136-145) Potassium Level 4.2 mmol/L (3.5-5.1) Chloride Level 105 mmol/L (98-107) Carbon Dioxide Level 22 mmol/L (21-32) Anion Gap 14 (6-14) Blood Urea Nitrogen 107 mg/dL (7-20) H Creatinine 2.3 mg/dL (0.6-1.0) H Estimated GFR (Cockcroft-Gault) 20.0 BUN/Creatinine Ratio 47 (6-20) H Glucose Level 115 mg/dL (70-99) H Calcium Level 8.8 mg/dL (8.5-10.1) Total Bilirubin 1.0 mg/dL (0.2-1.0) Aspartate Amino Transferase (AST) 28 U/L (15-37) Alanine Aminotransferase (ALT) 29 U/L (14-59) Alkaline Phosphatase 149 U/L (46-116) H Total Protein 7.7 g/dL (6.4-8.2) Albumin 3.6 g/dL (3.4-5.0) Albumin/Globulin Ratio 0.9 (1.0-1.7) L Urine Collection Type U cath Urine Color Yellow Urine Clarity Clear Urine pH 5.0 Urine Specific [place] 1.010 Urine Protein Neg (NEG-TRACE) Urine Glucose (UA) Neg mg/dL (NEG) Urine Ketones (Stick) Neg mg/dL (NEG) Urine Blood Neg (NEG) Urine Nitrite Neg (NEG) Urine Bilirubin Neg (NEG) Urine Urobilinogen Dipstick 0.2 mg/dL (0.2 mg/dL) Urine Leukocyte Esterase Trace (NEG) Urine RBC Rare /HPF (0-2) Urine WBC 5-10 /HPF (0-4) Urine Squamous Epithelial Cells Few /LPF Urine Bacteria Few /HPF (0-FEW) Urine Hyaline Casts Occ /HPF Urine Mucus Slight /LPF SARS-CoV-2 Antigen (Rapid) Negative (NEGATIVE) Vital Signs: Vital Signs Date Time Temp Pulse Resp B/P (MAP) Pulse Ox O2 Delivery O2 Flow Rate FiO2 07/18/21 00:10 60 20 130/62 (84) 95 Room Air 07/17/21 23:15 60 20 128/56 (80) 95 Room Air 07/17/21 21:57 60 18 125/53 (77) 93 Room Air 07/17/21 19:55 60 18 155/62 (93) 95 Room Air 07/17/21 19:08 98.8 60 18 142/36 95 Room Air 07/17/21 18:59 101/62 Radiology/Procedures: Radiology/Procedures: Renal ultrasound complete: Reason for examination: Back pain and acute renal insufficiency. Right kidney measures 8.9 x 3.1 x 3.4 cm in greatest dimension. There is poor cortical medullary differentiation. No hydronephrosis or mass is seen. Vascular flow appears to be diminished. The left kidney measures 8.6 x 3.6 x 4.4 cm in greatest dimension and there appears to be cortical thinning with no mass or hydronephrosis evident. Vascular flow appears to be diminished. Bladder is well-distended without focal mass seen. Ureteral jets were not identified. The inferior vena cava is poorly visualized due to poor mobility of the patient and bowel gas. IMPRESSION: Poor cortical medullary differentiation with decreased vascular flow bilaterally. No masses or hydronephrosis are evident. Bladder is distended but the ureteral jets were not seen. Electronically signed by: Jojo Gong MD (07/17/2021 8:17 PM) Heart Score: C/O Chest Pain: N/A Course & Med Decision Making: Course & Med Decision Making Patient was seen for abnormal lab value with KARIE suspected. Confirmed with our BMP today. Patient was treated with fluids given that her BUN/creatinine ratio was >20. Patient will be admitted to the hospital under Dr. Ramos with continuous fluids running. My Orders - HORACIO CANDELARIA DO Procedure Category Date Status Time Renal Complete US 07/17/21 Resulted Bilateral 18:13 Cbc W Autodiff LAB 07/17/21 Complete 18:13 Comprehensive LAB 07/17/21 Complete Metabolic Panel 18:13 Iv Normal Saline PHA 07/17/21 Complete 1,000ml (Iv Sodium 18:30 Coronavirus-19, Pcr LAB 07/17/21 In Process ( Tommy) 19:02 Straight Cath Prn ANAMIKA 07/17/21 In Process 19:53 Ua, Cult If Indicated LAB 07/17/21 Complete 21:32 Urine Culture KIRK 07/17/21 In Process 22:03 Ed Bridge Order ADT 07/17/21 Transmitted 22:10 Code Status CODE 07/17/21 Transmitted 22:10 Vital Signs, Per ANAMIKA 07/17/21 In Process Protocol 22:10 RENAL DIET 07/18/21 Transmitted Breakfast Ambulate With ANAMIKA 07/17/21 In Process Assistance 22:10 Cbc W Autodiff LAB 07/18/21 Logged 06:00 Basic Metabolic Panel LAB 07/18/21 Logged 06:00 Ondansetron Pf PHA 07/17/21 In Process (Zofran) 22:15 Iv Normal Saline PHA 07/17/21 In Process 1,000ml (Iv Sodium 22:15 Departure Departure: Impression: Primary Impression: KARIE (acute kidney injury) Disposition: ADMITTED INPATIENT Admitting Physician: Haim Ramos Condition: STABLE Referrals: TUSHAR MARIA MD (PCP) HORACIO CANDELARIA DO Jul 17, 2021 18:21
[2021-07-17] MEDS ORDERED: IV NORMAL SALINE 1,000ML 500 ML IV SCH (18:30)
[2021-07-17 19:23] LABS: BASO # 0.1 x10^3/uL (0.0-0.2); BASO % 1 % (0-3); EOS # 0.2 x10^3/uL (0.0-0.7); EOS % 2 % (0-3); HEMATOCRIT 38.6 % (36.0-47.0); HEMOGLOBIN 12.6 g/dL (12.0-15.5); LYMPH # 1.6 x10^3/uL (1.0-4.8); LYMPH % 18 % (24-48); MEAN CORPUSCULAR HEMOGLOBIN 31 pg (25-35); MEAN CORPUSCULAR HGB CONC 33 g/dL (31-37); MEAN CORPUSCULAR VOLUME 94 fL (79-100); MONO # 0.7 x10^3/uL (0.0-1.1); MONO % 8 % (0-9); NEUT # 6.2 x10^3uL (1.8-7.7); NEUT % 71 % (31-73); PLATELET COUNT 251 x10^3/uL (140-400); RED BLOOD COUNT 4.11 x10^6/uL (3.50-5.40); RED CELL DISTRIBUTION WIDTH 13.8 % (11.5-14.5); WHITE BLOOD COUNT 8.7 x10^3/uL (4.0-11.0)
[2021-07-17 19:29] LABS: CALCIUM 8.8 mg/dL (8.5-10.1); CREATININE 2.3 mg/dL (0.6-1.0); POTASSIUM 4.2 mmol/L (3.5-5.1)
[2021-07-17 19:36] LABS: ALBUMIN 3.6 g/dL (3.4-5.0); ALBUMIN/GLOBULIN RATIO 0.9 (1.0-1.7); TOTAL PROTEIN 7.7 g/dL (6.4-8.2)
--- NOTE | 2021-07-17 20:19 | RAD ---
Renal ultrasound complete: Reason for examination: Back pain and acute renal insufficiency. Right kidney measures 8.9 x 3.1 x 3.4 cm in greatest dimension. There is poor cortical medullary diff erentiation. No hydronephrosis or mass is seen. Vascular flow appears to be diminished. The left kidney measures 8.6 x 3.6 x 4.4 cm in greatest dimension and there appears to be cortical th inning with no mass or hydronephrosis evident. Vascular flow appears to be diminished. Bladder is well-distended without focal mass seen. Ureteral jets were not identified. The inferior vena cava is poorly visualized due to poor mobility of the patient and bowel gas. IMPRESSION: Poor cortical medullary differentiation with decreased vascular flow bilaterally. No masses or hydron ephrosis are evident. Bladder is distended but the ureteral jets were not seen. Electronically signed by: Jojo Gong MD (07/17/2021 8:17 PM) JOSE
[2021-07-17 22:02] LABS: BACTERIA,URINE FEW /HPF (0-FEW); BILIRUBIN,URINE NEG (NEG); CLARITY,URINE CLEAR; COLOR,URINE YELLOW; GLUCOSE,URINE NEG (NEG); NITRITE,URINE NEG (NEG); RBC,URINE RARE /HPF (0-2); UROBILINOGEN,URINE 0.2 mg/dL (0.2 mg/dL)
[2021-07-17 22:03] LABS: HYALINE CASTS, URINE OCC /HPF; SQUAMOUS EPITHELIAL CELL,UR FEW /LPF
[2021-07-17] MEDS ORDERED: ONDANSETRON PF 4 MG/2 ML VIAL. IVP PRN (22:15)
[2021-07-17] MEDS: IV NORMAL SALINE 1,000ML 1,000 ML IV SCH (22:55)
[2021-07-18] VITALS (7 sets, daily range): BP systolic 134–167; BP diastolic 47–71
[2021-07-18 06:22] LABS: BASO # 0.1 x10^3/uL (0.0-0.2); BASO % 1 % (0-3); EOS # 0.1 x10^3/uL (0.0-0.7); EOS % 1 % (0-3); HEMATOCRIT 36.8 % (36.0-47.0); HEMOGLOBIN 12.1 g/dL (12.0-15.5); LYMPH # 1.7 x10^3/uL (1.0-4.8); LYMPH % 22 % (24-48); MEAN CORPUSCULAR HEMOGLOBIN 31 pg (25-35); MEAN CORPUSCULAR HGB CONC 33 g/dL (31-37); MEAN CORPUSCULAR VOLUME 94 fL (79-100); MONO # 0.6 x10^3/uL (0.0-1.1); MONO % 8 % (0-9); NEUT # 5.2 x10^3uL (1.8-7.7); NEUT % 67 % (31-73); PLATELET COUNT 222 x10^3/uL (140-400); RED BLOOD COUNT 3.91 x10^6/uL (3.50-5.40); RED CELL DISTRIBUTION WIDTH 13.8 % (11.5-14.5); WHITE BLOOD COUNT 7.7 x10^3/uL (4.0-11.0)
[2021-07-18 06:26] LABS: CALCIUM 8.7 mg/dL (8.5-10.1); GFR 23.5; POTASSIUM 3.4 mmol/L (3.5-5.1)
[2021-07-18] MEDS ORDERED: ACETAMINOPHEN 325 MG TABLET PO PRN (09:30)
[2021-07-18] MEDS ORDERED: MAGNESIUM SULFATE 1GM 100 ML IV ONE (09:30)
--- NOTE | 2021-07-18 10:05 | HP ---
ATTENDING PHYSICIAN: Dr. Ramos. CHIEF COMPLAINT: Dehydration. 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 She has been on diuretic therapy and her lab work was abnormal, BUN was 107 mg/dL with a creatinine of 2.3 mg/dL. I do not know what her baseline is. Because of these abnormal lab values. She is on torsemide. She has very little insight. She is at the end-stage of her life. She has no comprehension. She was brought in for further treatment. I stopped her diuretics. I put her on gentle IV hydration. She is a DNR per advanced directive. PAST MEDICAL HISTORY: Significant for essential hypertension, profound dementia that is prominent, degenerative arthritis, depression with anxiety and hypothyroidism. CURRENT MEDICATIONS: Include Tylenol, amlodipine, aspirin, Lipitor, clonazepam, docusate, hydralazine, labetalol, lactobacillus, Synthroid, melatonin, Protonix, potassium, Zoloft and torsemide 20 mg daily. ALLERGIES: SHE HAS ALLERGIES TO IODINE CONTRAST PRODUCTS. SOCIAL HISTORY: She is a nonsmoker, nondrinker. FAMILY HISTORY: Unobtainable. REVIEW OF SYSTEMS: Unobtainable due to the patient's dementia. PHYSICAL EXAMINATION: GENERAL: When I saw her, this is a pleasant, confused elderly female. VITAL SIGNS: Her initial vital signs showed a blood pressure 125/53 mmHg, pulse was 60 and regular, her oxygen saturation was 93% on room air. She was afebrile. HEENT: Head is without trauma. Pupils are reactive. Sclerae nonicteric. Oropharynx is clear. NECK: Supple, no bruits identified. LUNGS: Good breath sounds but shallow respirations. CARDIOVASCULAR: Regular heart tones. No gallops. ABDOMEN: Soft. EXTREMITIES: Without edema. NEUROLOGIC: Focally intact. Speech is fluent. She is very confused. SKIN: Otherwise, warm and dry. PERTINENT LABORATORY STUDIES: Admission hemoglobin was 12.6 g/dL with a white count of 8700. BUN 107, creatinine 2.3 mg/dL, potassium 4.2 mEq, nonfasting blood sugar 115 mg/dL. ASSESSMENT: 1. An 89-year-old female with dehydration related to diuretics. 2. Chronic kidney failure, stage 4. 3. Profound dementia. 4. Hypertension. 5. Hypothyroidism. 6. Depression with anxiety. PLAN: 1. Admit to the inpatient unit. 2. Gentle IV hydration. 3. Torsemide has been held. 4. Meds simplified. 5. Serial chemistries. 6. Diet as tolerated. 7. She is a DNR per advanced directive, we will respect her wishes. When her chemistries and creatinine return to baseline, she will be discharged back to her living facility. RILEY DR: Jonny TID: [id number] CC: TUSHAR MARIA MD
[2021-07-18] MEDS: ASPIRIN CHEWABLE 81 MG TABLET. PO SCH (10:07)
[2021-07-18] MEDS: clonazePAM 0.5 MG TABLET PO SCH ×3 (10:08→20:48)
[2021-07-18] MEDS: amLODIPine BESYLATE 10 MG TABLET PO SCH (10:08)
[2021-07-18] MEDS: LABETALOL HCL 100 MG TABLET PO SCH ×2 (10:24→20:47)
[2021-07-18] MEDS: IV NORMAL SALINE 1,000ML 1,000 ML IV SCH (11:45)
[2021-07-18] MEDS ORDERED: SERTRALINE 25 MG TABLET. PO SCH (21:00)
[2021-07-18] MEDS ORDERED: ACETAMINOPHEN 325 MG TABLET PO SCH (21:00)
[2021-07-19 05:45] VITALS: BP 178/70
[2021-07-19] MEDS ORDERED: LEVOTHYROXINE 88 MCG TABLET PO SCH (06:00)
[2021-07-19] MEDS ORDERED: PANTOPRAZOLE 40 MG TABLET. PO SCH (07:30)
[2021-07-19] MEDS: clonazePAM 0.5 MG TABLET PO SCH (08:06)
[2021-07-19] MEDS: LABETALOL HCL 100 MG TABLET PO SCH (08:07)
[2021-07-19] MEDS: ASPIRIN CHEWABLE 81 MG TABLET. PO SCH (08:07)
[2021-07-19] MEDS: amLODIPine BESYLATE 10 MG TABLET PO SCH (08:07)
[2021-07-19 09:50] LABS: CALCIUM 8.1 mg/dL (8.5-10.1); CREATININE 1.7 mg/dL (0.6-1.0); GFR 28.3; POTASSIUM 3.6 mmol/L (3.5-5.1)
--- NOTE | 2021-07-19 11:49 | DS ---
DATE OF DISCHARGE: 07/19/2021 ATTENDING PHYSICIAN: Dr. Ramos. FINAL DISCHARGE DIAGNOSES: 1. Dehydration related to diuretics. 2. Prerenal azotemia. 3. Chronic kidney failure, stage IV. 4. Profound dementia. 5. Urinary incontinence, chronic. 6. Essential hypertension. 7. Hypothyroidism, on placement. 8. Depression with anxiety. HISTORY AND PHYSICAL: The patient is age 89. She lives at [facility]. She is well known to us from previous admission. She has been on a diuretic for pedal edema. Her BUN was over 100 and creatinine was 2.3 mg/dL. She was admitted with dehydration. PHYSICAL EXAMINATION: Please see the dictated note. PERTINENT LABORATORY AND X-RAY STUDIES: Admission hemoglobin was 12.6 g/dL with a white count 8700. Electrolytes within normal range. Potassium is 4.2 mEq. Admission creatinine was 2.3 mg/dL with hydration. Repeated the next day, came down to 2.0 and on the third day was down to 1.7 mg/dL. BUN declined from 107-95-71 mg/dL respectively. Nonfasting blood sugar is adequate. Electrolytes within range. Liver panel unremarkable. COURSE IN THE HOSPITAL: The patient was admitted. She was started on gentle IV hydration with regular saline. Her diuretics were held. Other home meds were continued. She did fairly well. She has some urinary incontinence requiring intermittent placement of the Louis catheter and eventual straight catheterization. Adult diapers were administered. This is a chronic problem. She will have followup with her urologist as an outpatient. On the third hospital day, her vital signs are stable. She was reasonably cooperative, not too agitated. She wanted to go home. I felt this is reasonable. I spoke with Melvi Sky the nurse in charge at the [facility] and outlined a plan for followup care. Her discharge meds are simplified. There are no new medications. She will continue her Tylenol, amlodipine 10 mg daily, aspirin daily, Lipitor, hydralazine, labetalol 100 mg b.i.d., Synthroid, melatonin, Protonix, potassium supplementation and Zoloft doses unchanged. For now, we held her torsemide and her lactobacillus. She is a DNR per advanced directives. We will respect her wishes. The patient was then discharged from our hospital in stable condition with explicit drug and followup care. Total discharge time spent 39 minutes. SYH/SAT DR: Jonny TID: [id number] CC: TUSHAR MARIA MD
[2021-07-19 11:54] VITALS: BP 131/55
== END 2021-07-19 13:05 | disposition home or self-care (01) | DRG 640 ==
LOC: ER 17:30 → 1 SOUTH 22:10
PROVIDERS: ADMIT Hospitalist; ATTEND Hospitalist
DX: E86.0 Dehydration (principal); N17.0 Acute kidney failure with tubular necrosis; N18.4 Chronic kidney disease, stage 4 (severe); Z66 Do not resuscitate; K21.9 Gastro-esophageal reflux disease without esophagitis; M19.90 Unspecified osteoarthritis, unspecified site; F41.9 Anxiety disorder, unspecified; E03.9 Hypothyroidism, unspecified; F03.90 Unspecified dementia, unspecified severity, without behavioral disturbance, psychotic disturbance, mood disturbance, and anxiety; I12.9 Hypertensive chronic kidney disease with stage 1 through stage 4 chronic kidney disease, or unspecified chronic kidney disease; F41.8 Other specified anxiety disorders; T50.2X5A Adverse effect of carbonic-anhydrase inhibitors, benzothiadiazides and other diuretics, initial encounter; Y92.89 Other specified places as the place of occurrence of the external cause; R32 Unspecified urinary incontinence; I35.0 Nonrheumatic aortic (valve) stenosis; Z90.49 Acquired absence of other specified parts of digestive tract; Z79.82 Long term (current) use of aspirin; Z91.041 Radiographic dye allergy status; Z20.822 Contact with and (suspected) exposure to COVID-19
CPT/HCPCS: 36415; 76770; 80048; 80053; 81001; 85025; 87086; 87426; 96360; 96361; J3475; P9612; U0003; 99285-25; J7030

== ENCOUNTER → 2021-08-20 | Outpatient (CLI) | payer MEDICARE, OTHER ==
--- NOTE | 2021-08-20 23:30 | RAD ---
EXAM: DUAL ENERGY X-RAY ABSORPTIOMETRY (DEXA). HISTORY: Postmenopausal screening. FINDINGS: The lowest measured T-score is -4.7 in the right femoral neck, based on a bone mineral dens ity of 0.372 g/cm^2. Refer to the worksheets for full detail. In comparison with the prior study of 11/25/2010, average bone mineral density at the lumbar spine herman s changed -5.8%, while the average density at the hips has changed -42.5%. IMPRESSION: Osteoporosis. Bone mineral density yields a T-score of -2.5 or less. Fracture risk is high. FRAX was not calculated. METHODOLOGY: Dual energy x-ray absorptiometry was performed to measure bone mineral density. The foll owing analysis is based on the 2019 Official Positions of the International Society for Clinical Dens itometry: Measurements of the hips and the average of L1-L4 are preferred. When the spine and/or hip cannot be feasibly measured or interpreted, or in the setting of hyperparathyroidism, distal radial bone minera l density may be measured. The lumbar spine T-score is based on the average bone mineral density of L1-L4. In the setting of art ifact or anatomic abnormality, some lumbar levels may be excluded, and the remaining levels used for calculation. A single lumbar level is not used for diagnosis, and if only a single level is available for assessment, another anatomic site will be used to assign a diagnosis. The hip T-score is based on the bone mineral density measurement of the femoral neck or total proxima l femur of either side, whichever is lowest. Bilateral mean values are not used for diagnosis. The forearm T-score is derived from 33% of the distal radius of the nondominant forearm. For postmenopausal and perimenopausal women, and men age 50 or older, of all ethnic groups, T-scores are calculated through comparison of the current measurement with the NHANES III database standard fo r females aged 20-29 years. The lowest T-score of the evaluated anatomic sites is used to a ssign a diagnosis based on the World Health Organization densitometric classification. In premenopausal females and males younger than age 50, a Z-score is calculated based on population s pecific reference data for patient sex and self-reported ethnicity. Electronically signed by: Parrish Gerber MD (08/20/2021 11:28 PM) [facility]
== END ==
LOC: DXRAD 13:53
PROVIDERS: ATTEND Family Medicine
DX: M81.0 Age-related osteoporosis without current pathological fracture (principal)
CPT/HCPCS: 77080

== ENCOUNTER 2021-08-25 16:25 | Emergency (ER) | payer MEDICARE, OTHER ==
[~2021-08-25] VITALS: Ht 167.6 cm; Wt 65.4 kg
[2021-08-25] MEDS ORDERED: methylPREDNISolone SOD SUCC PF 125 MG/2 ML VIAL. IV ONE (17:00)
--- NOTE | 2021-08-25 17:02 | PHYS DOC ---
Past History Past Medical History: Anxiety, GERD, Heart Disease, Hypertension Additional Past Medical Histor: critical aortic stenosis, chronic renal insufficiency (VERONICA MERCER APRN) Past Surgical History: Appendectomy, Other Additional Past Surgical Histo: heart valve (VERONICA MERCER APRN) Smoking: Non-smoker Alcohol Use: None Drug Use: None (VERONICA MERCER APRN) General Adult EDM: Chief Complaint: SHORTNESS OF BREATH HPI: HPI: Patient is an 89-year-old female who presents to the ER from [facility] for complaints of shortness of breath that started this morning. Patient has an extensive health history including hypothyroidism, endocarditis, chronic kidney disease, hypertension, hyperlipidemia, CHF. She wears 2 L of oxygen at all times but staff reports that they had to titrate her to 3 L via nasal cannula. They deny any cough, fever or increased peripheral edema. Patient also has a history of dementia. She is alert and oriented to person and place which is her baseline. Staff states that there has been no sick exposures and that she is vaccinated for COVID-19. (VERONICA MERCER APRN) Review of Systems: Review of Systems: 14 body systems of the review of systems have been reviewed. See HPI for pertinent positive and negative responses, otherwise all other systems are negative, nonpertinent or noncontributory (VERONICA MERCER APRN) Current Medications: Current Meds: Current Medications Medications (Trade) Dose Ordered Sig/Benjamin Start Time Stop Time Status Last Admin Dose Admin Methylprednisolone Sodium Succinate (SOLU-Medrol 125MG VIAL) 125 mg 1X ONCE 08/25/21 17:00 08/25/21 17:01 (VERONICA MERCER APRN) Allergies: Allergies: Allergies Coded Allergies Type Severity Reaction Last Updated Verified Iodinated Contrast Media Allergy Intermediate Itching 08/25/21 Yes (VERONICA MERCER APRN) Physical Exam: PE: Constitutional: Well developed, well nourished, no acute distress, non-toxic appearance. [] HENT: Normocephalic, atraumatic, bilateral external ears normal, oropharynx moist, no oral exudates, nose normal. [] Eyes: PERRL, EOMI, conjunctiva normal, no discharge. [] Neck: Normal range of motion, no stridor Cardiovascular:Heart rate regular rhythm, no murmur [] Lungs & Thorax: Rhonchi noted throughout worse at bases Abdomen: Bowel sounds normal, soft, no tenderness, no masses, no pulsatile masses. [] Skin: Warm, dry, no erythema, no rash. [] Back: No tenderness Extremities: No tenderness, no cyanosis, no clubbing, ROM intact, no edema. [] Neurologic: Alert and oriented X 2, normal motor function, normal sensory function, no focal deficits noted. [] Psychologic: Affect normal, judgement normal, mood normal. [] (VERONICA MERCER APRN) Current Patient Data: Labs: Laboratory Tests Test 08/25/21 17:10 08/25/21 17:12 White Blood Count 9.2 x10^3/uL Red Blood Count 3.66 x10^6/uL Hemoglobin 11.3 g/dL Hematocrit 34.7 % Mean Corpuscular Volume 95 fL Mean Corpuscular Hemoglobin 31 pg Mean Corpuscular Hemoglobin Concent 33 g/dL Red Cell Distribution Width 15.5 % Platelet Count 256 x10^3/uL Neutrophils (%) (Auto) 83 % Lymphocytes (%) (Auto) 9 % Monocytes (%) (Auto) 5 % Eosinophils (%) (Auto) 3 % Basophils (%) (Auto) 1 % Neutrophils # (Auto) 7.6 x10^3uL Lymphocytes # (Auto) 0.8 x10^3/uL Monocytes # (Auto) 0.4 x10^3/uL Eosinophils # (Auto) 0.3 x10^3/uL Basophils # (Auto) 0.0 x10^3/uL Sodium Level 140 mmol/L Potassium Level 4.6 mmol/L Chloride Level 105 mmol/L Carbon Dioxide Level 25 mmol/L Anion Gap 10 Blood Urea Nitrogen 16 mg/dL Creatinine 1.3 mg/dL Estimated GFR (Cockcroft-Gault) 38.6 BUN/Creatinine Ratio 12 Glucose Level 125 mg/dL Calcium Level 8.9 mg/dL Total Bilirubin 0.5 mg/dL Aspartate Amino Transf (AST/SGOT) 21 U/L Alanine Aminotransferase (ALT/SGPT) 22 U/L Alkaline Phosphatase 115 U/L Troponin I Quantitative < 0.017 ng/mL EO-Qcr-[id number]-Type Natriuretic Peptide 1852 pg/mL Total Protein 6.6 g/dL Albumin 3.3 g/dL Albumin/Globulin Ratio 1.0 SARS-CoV-2 Antigen (Rapid) Negative Current Medications Medications (Trade) Dose Ordered Sig/Benjamin Route PRN Reason Start Time Stop Time Status Last Admin Dose Admin Methylprednisolone Sodium Succinate (SOLU-Medrol 125MG VIAL) 125 mg 1X ONCE IV 08/25/21 17:00 08/25/21 17:01 DC 08/25/21 17:09 Furosemide (Lasix) 40 mg 1X ONCE IVP 08/25/21 18:00 08/25/21 18:01 DC 08/25/21 18:08 Ceftriaxone Sodium 1 gm/ Sodium Chloride 50 ml @ 100 mls/hr 1X ONCE IV 08/25/21 18:00 08/25/21 18:29 DC 08/25/21 18:14 Azithromycin 500 mg/Sodium Chloride 250 ml @ 250 mls/hr 1X ONCE IV 08/25/21 18:00 08/25/21 18:59 Sodium Chloride 250 ml @ As Directed STK-MED ONCE .ROUTE 08/25/21 17:57 08/25/21 17:57 DC Sodium Chloride 50 ml @ As Directed STK-MED ONCE .ROUTE 08/25/21 17:57 08/25/21 17:57 DC Azithromycin (Zithromax) 500 mg STK-MED ONCE IV 08/25/21 17:57 08/25/21 17:57 DC Ceftriaxone Sodium (Rocephin) 1 gm STK-MED ONCE .ROUTE 08/25/21 17:57 08/25/21 17:58 DC Vital Signs: Vital Signs Date Time Temp Pulse Resp B/P (MAP) Pulse Ox O2 Delivery O2 Flow Rate FiO2 08/25/21 16:50 98.4 66 28 155/57 (89) 89 Nasal Cannula 5.0 (VERONICA MERCER APRN) EKG: EKG: EKG performed by ER staff at 1737 shows sinus rhythm, no STEMI read by Dr. Sky at 1743 [] (VERONICA MERCER APRN) Radiology/Procedures: Radiology/Procedures: []PROCEDURE: PORTABLE CHEST 1V XR CHEST 1V History: Reason: SOA / Spl. Instructions: / History: Comparison: September 13, 2015 Findings: Mild diffuse interstitial thickening. Mild ill-defined mid and bibasilar opacities. Small bilateral pleural effusions. No pneumothorax. TAVR noted. Enlarged cardiac size. Lower thoracic/upper lumbar compression fractures status post kyphoplasty. Impression: 1. Diffuse interstitial thickening with ill-defined opacities, may represent pulmonary edema or infection. 2. Small bilateral pleural effusions. Electronically signed by: Davie Hutton DO (08/25/2021 5:33 PM) [facility] DICTATED AND SIGNED BY: DAVIE HUTTON DO DATE: 08/25/21 173 CC: TUSHAR MARIA MD; VERONICA MERCER APRN ~MTH0 0 (VERONICA MERCER APRN) Heart Score: C/O Chest Pain: No Risk Factors: Risk Factors: DM, Current or recent (<one month) smoker, HTN, HLP, family history of CAD, obesity. Risk Scores: Score 0 - 3: 2.5% MACE over next 6 weeks - Discharge Home Score 4 - 6: 20.3% MACE over next 6 weeks - Admit for Clinical Observation Score 7 - 10: 72.7% MACE over next 6 weeks - Early Invasive Strategies (VERONICA MERCER APRN) Course & Med Decision Making: Course & Med Decision Making Pertinent Labs and Imaging studies reviewed. (See chart for details) [] Patient is an 89-year-old female who presents to the ER for shortness of breath that started this morning. Patient was noted to be hypoxic with an O2 sat of 82% on 2 L. Patient placed on nonrebreather and her current O2 saturation is 96%. Work-up in the ER consisted of blood work, EKG, chest x-ray. Patient was given Solu-Medrol. Patient's chest x-ray showed ill-defined opacities which could be filtrates versus pulmonary edema located in the mid and bibasilar regions with small bilateral pleural effusions. Her BNP was elevated at 1852. Her CBC was unremarkable. Her troponin was negative. Rapid Covid was negative. Patient was treated with Lasix and antibiotics. Patient continues to be stable on a nonrebreather. I discussed patient's case with Dr. Horton who agreed to admit the patient under his services for hypoxia and CHF exacerbation. I discussed findings with patient as well as care plan and she is agreeable to be admitted at this time. Care transferred and bridge orders placed at this time 1833. (VERONICA MERCER APRN) Course & Med Decision Making Pt.eventually transfered to [facility]- under Dr. Clifford- because of no beds available here at [facility] - See prior notes for hx in ED. (MANPREET PETE MD) Dragon Disclaimer: Dragon Disclaimer: This electronic medical record was generated, in whole or in part, using a voice recognition dictation system. (VERONICA MERCER APRN) Departure Departure: Referrals: TUSHAR MARIA MD (PCP) Dragon Disclaimer This chart was dictated in whole or in part using Voice Recognition software in a busy, high-work load, and often noisy Emergency Department environment. It may contain unintended and wholly unrecognized errors or omissions. (MANPREET PETE MD) Attending Signature Attending Signature I have participated in the care of this patient and I have reviewed and agree with all pertinent clinical information above including history, exam, and re commendations. (MANPREET PETE MD) VERONICA MERCER APRN Aug 25, 2021 17:02 MANPREET PETE MD Aug 26, 2021 20:31
[2021-08-25 17:33] LABS: BASO % 1 % (0-3); EOS # 0.3 x10^3/uL (0.0-0.7); EOS % 3 % (0-3); HEMATOCRIT 34.7 % (36.0-47.0); HEMOGLOBIN 11.3 g/dL (12.0-15.5); LYMPH # 0.8 x10^3/uL (1.0-4.8); LYMPH % 9 % (24-48); MEAN CORPUSCULAR HEMOGLOBIN 31 pg (25-35); MEAN CORPUSCULAR HGB CONC 33 g/dL (31-37); MEAN CORPUSCULAR VOLUME 95 fL (79-100); MONO # 0.4 x10^3/uL (0.0-1.1); MONO % 5 % (0-9); NEUT # 7.6 x10^3uL (1.8-7.7); NEUT % 83 % (31-73); PLATELET COUNT 256 x10^3/uL (140-400); RED BLOOD COUNT 3.66 x10^6/uL (3.50-5.40); RED CELL DISTRIBUTION WIDTH 15.5 % (11.5-14.5); WHITE BLOOD COUNT 9.2 x10^3/uL (4.0-11.0)
--- NOTE | 2021-08-25 17:35 | RAD ---
XR CHEST 1V History: Reason: SOA / Spl. Instructions: / History: Comparison: September 13, 2015 Findings: Mild diffuse interstitial thickening. Mild ill-defined mid and bibasilar opacities. Small bilateral p leural effusions. No pneumothorax. TAVR noted. Enlarged cardiac size. Lower thoracic/upper lumbar com pression fractures status post kyphoplasty. Impression: 1. Diffuse interstitial thickening with ill-defined opacities, may represent pulmonary edema or infe ction. 2. Small bilateral pleural effusions. Electronically signed by: Davie Hutton DO (08/25/2021 5:33 PM) [facility]
[2021-08-25 17:37] LABS: CALCIUM 8.9 mg/dL (8.5-10.1); CREATININE 1.3 mg/dL (0.6-1.0); GFR 38.6; POTASSIUM 4.6 mmol/L (3.5-5.1)
[2021-08-25 17:48] LABS: ALBUMIN 3.3 g/dL (3.4-5.0); TOTAL BILIRUBIN 0.5 mg/dL (0.2-1.0); TOTAL PROTEIN 6.6 g/dL (6.4-8.2)
--- NOTE | 2021-08-25 17:48 | EKG ---
[address] [address] Test Date: 2021-08-25 Test Time: 17:37:34 Pat Name: AIDAN HENSON Department: Room: Gender: F Online Education Manager: KARMA : [id number] Requested By: VERONICA MERCER Order Number: [id number] Reading MD: Measurements Intervals [place] Rate: 65 P: DE: QRS: 32 QRSD: 88 T: 55 QT: 436 QTc: 459 Interpretive Statements IRREGULAR RHYTHM, NO P-WAVE FOUND OTHERWISE NORMAL ECG RI6.02 No previous ECG available for comparison
[2021-08-25] MEDS ORDERED: IV NORMAL SALINE 50ML 50 ML ONE (17:57)
[2021-08-25] MEDS ORDERED: AZITHROMYCIN 500 MG VIAL. IV ONE (17:57)
[2021-08-25] MEDS ORDERED: IV NORMAL SALINE 250ML 250 ML ONE (17:57)
[2021-08-25] MEDS ORDERED: cefTRIAXone SODIUM 1 GM VIAL ONE (17:57)
[2021-08-25] MEDS ORDERED: FUROSEMIDE 40 MG/4 ML VIAL IVP ONE (18:00)
[2021-08-25] MEDS ORDERED: AZITHROMYCIN 500 MG in IV NORMAL SALINE 250ML 250 ML IV ONE (18:00)
[2021-08-25 18:42] LABS: BACTERIA,URINE 0 /HPF (0-FEW); BILIRUBIN,URINE NEG (NEG); CLARITY,URINE CLEAR; COLOR,URINE YELLOW; GLUCOSE,URINE NEG (NEG); HYALINE CASTS, URINE OCC /HPF; NITRITE,URINE NEG (NEG); RBC,URINE 0 /HPF (0-2); UROBILINOGEN,URINE 0.2 mg/dL (0.2 mg/dL); WBC,URINE 0 /HPF (0-4)
[2021-08-25 22:53] VITALS: BP 144/56
== END 2021-08-25 22:55 | disposition short-term general hospital (02) ==
LOC: ER 16:25
DX: R06.02 Shortness of breath (principal); R09.02 Hypoxemia; E03.9 Hypothyroidism, unspecified; K21.9 Gastro-esophageal reflux disease without esophagitis; I13.0 Hypertensive heart and chronic kidney disease with heart failure and stage 1 through stage 4 chronic kidney disease, or unspecified chronic kidney disease; N18.9 Chronic kidney disease, unspecified; I50.9 Heart failure, unspecified; Z20.822 Contact with and (suspected) exposure to COVID-19; Z90.89 Acquired absence of other organs; Z91.041 Radiographic dye allergy status
CPT/HCPCS: 36415; 71045; 80053; 81001; 83880; 84484; 85025; 87426; 93005; 96365; 96366; 96368; 96375; 99285; C9803; J0456; J0696; J1940; J2930; J7050; P9612; U0003